=== PATIENT | male | born 1970 | race Caucasian/White ===

== ENCOUNTER 2017-06-10 22:14 | Emergency (ER) | payer OTHER ==
[~2017-06-10] VITALS: Ht 185.4 cm; Wt 78.0 kg
[2017-06-10] MEDS ORDERED: LORazepam 2 MG/ML VIAL IV PUSH ONE (22:30)
[2017-06-10] MEDS ORDERED: SODIUM CHLOR 0.9% 1000 ML INJ 1,000 ML IV ONE ×2 (22:30)
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
[2017-06-10 22:49] VITALS: BP 154/82; PULSE 99; RESP 17; TEMP 98.5; O2SAT 99
[2017-06-10 23:08] LABS: BASOPHIL # 0.1 TH/MM3 (0-0.2); BASOPHIL % 0.6 % (0.0-2.0); EOSINOPHIL # 0.4 TH/MM3 (0-0.4); EOSINOPHIL % 2.9 % (0.0-4.0); HEMATOCRIT 45.1 % (39.0-51.0); HEMOGLOBIN 15.6 GM/DL (13.0-17.0); LYMPH % 25.9 % (9.0-44.0); LYMPHOCYTE # 3.4 TH/MM3 (1.0-4.8); MEAN CELL VOLUME 90.4 FL (80.0-100.0); MEAN CORPUSCULAR HEMOGLOBIN 31.3 PG (27.0-34.0); MEAN CORPUSCULAR HGB CONC 34.7 % (32.0-36.0); MEAN PLATELET VOLUME 7.6 FL (7.0-11.0); MONO % 10.3 % (0.0-8.0); MONOCYTE # 1.4 TH/MM3 (0-0.9); NEUT % 60.3 % (16.0-70.0); PLATELET COUNT 264 TH/MM3 (150-450); RED BLOOD COUNT 4.99 MIL/MM3 (4.50-5.90); WHITE BLOOD COUNT 13.3 TH/MM3 (4.0-11.0)
[2017-06-10 23:20] LABS: ALBUMIN 4.1 GM/DL (3.4-5.0); ALT (GPT) 61 U/L (12-78); AST (GOT) 54 U/L (15-37); BICARBONATE 26.6 MEQ/L (21.0-32.0); BLOOD UREA NITROGEN 25 MG/DL (7-18); CALCIUM 9.3 MG/DL (8.5-10.1); CHLORIDE 108 MEQ/L (98-107); CREATININE 1.61 MG/DL (0.60-1.30); GLOMERULAR FILTRATION RATE 46 ML/MIN (>89); GLUCOSE,RANDOM 100 MG/DL (74-106); SODIUM (NA) 143 MEQ/L (136-145)
[2017-06-10 23:22] LABS: ALKALINE PHOSPHATASE 99 U/L (45-117); TOTAL BILIRUBIN ADULT 0.9 MG/DL (0.2-1.0); TOTAL PROTEIN 8.5 GM/DL (6.4-8.2)
[2017-06-10] MEDS ORDERED: HALOPERIDOL LACTATE 5 MG/ML AMP IV ONE (23:45)
[2017-06-11 00:35] VITALS: BP 122/60; PULSE 97; RESP 17; O2SAT 98
== END 2017-06-11 01:01 ==
LOC: NEPD 22:14
DX: S00.01XA Abrasion of scalp, initial encounter (principal); S00.411A Abrasion of right ear, initial encounter; F60.9 Personality disorder, unspecified; Y35.813A Legal intervention involving manhandling, suspect injured, initial encounter; Z72.0 Tobacco use
CPT/HCPCS: 80053; 80307; 83690; 85025; 96374; 96375; 99284; J1630; J2060; J7030